=== PATIENT | female | born 1970 | race Caucasian/White ===

== ENCOUNTER → 2016-11-07 | Outpatient (CLI) | payer OTHER ==
--- NOTE | 2016-11-10 13:08 | MM ---
Reason for exam: screening (asymptomatic). Last mammogram was performed 1 year and 1 month ago. History: Family history of breast cancer in maternal aunt at age 50. Pre-pectoral silicone gel implants, 2013. Took hormonal contraceptives for 10 years. Physical Findings: A clinical breast exam by your physician is recommended on an annual basis and results should be correlated with mammographic findings. MG Screening Mammo Implant/CAD Bilateral CC, MLO, and ID view(s) were taken. Prior study comparison: September 24, 2015, bilateral MG screening mammo implant/CAD. September 21, 2014, bilateral MG screening mammo w CAD. July 04, 2013, bilateral digital screening mammo w/CAD. The breast tissue is heterogeneously dense. This may lower the sensitivity of mammography. Finding: There are two 7 mm high density, oval masses located 3 cm from the nipple in the left breast, sceen on MLO view superficial to implant. New finding since September 24, 2015, September 21, 2014, and July 04, 2013. ASSESSMENT: Incomplete: need additional imaging evaluation, BI-RAD 0 RECOMMENDATION: Ultrasound of the left breast. [facility] will attempt to contact patient to return for ultrasound.
== END | disposition home or self-care (01) ==
LOC: RADMAMWWP 12:57
PROVIDERS: ATTEND Obstetrics & Gynecology
DX: Z12.31 Encounter for screening mammogram for malignant neoplasm of breast (principal); Z80.3 Family history of malignant neoplasm of breast

== ENCOUNTER → 2016-11-11 | Outpatient (CLI) | payer OTHER ==
--- NOTE | 2016-11-12 08:58 | USB ---
Reason for exam: additional evaluation requested from abnormal screening. History: Family history of breast cancer in maternal aunt at age 50. Pre-pectoral silicone gel implants, 2014. Took hormonal contraceptives for 10 years. Physical Findings: Nurse Summary: 1cm round movable nodule left breast at 9 o'clock (nurse mm). US Breast Workup LT Left breast ultrasound includes all four quadrants, the retroareolar region and axilla. Finding demonstrates three oval, cystic, benign lesions measuring 0.5 x 0.3 x 0.5cm at 2 o'clock, 0.4 x 0.3 x 0.4cm at 2 o'clock and 0.5 x 0.3 x 0.4cm at 6 o'clock, a 0.6 x 0.6 x 0.6cm round, mixed lesion at 9 o'clock, a complicated cyst is suspected correlating to the palpable site for which a 6 month follow up is recommended. and a 0.5 x 0.3 x 0.5cm oval lesion too small to characterize at 9 o'clock that is also near the palpable site for which a 6 month follow up is recommended. These results were verbally communicated with the patient and result sheet given to the patient on 11/11/16. ASSESSMENT: Probably benign, BI-RAD 3 RECOMMENDATION: Ultrasound of the left breast in 6 months.
== END | disposition home or self-care (01) ==
LOC: RADUSWWP 14:55
PROVIDERS: ATTEND Obstetrics & Gynecology
DX: R92.8 Other abnormal and inconclusive findings on diagnostic imaging of breast (principal); Z80.3 Family history of malignant neoplasm of breast